=== PATIENT | male | born 1995 | race Caucasian/White ===

== ENCOUNTER 2022-06-07 18:29 | Outpatient (REF) | payer OTHER, SELFPAY ==
[2022-06-07 21:56] LABS: Hemoglobin A1C 5.3 % (<5.7)
[2022-06-07 22:02] LABS: ALT 35 U/L (16-63); AST 30 U/L (15-37); Albumin 4.4 g/dL (3.4-5.0); Alkaline Phosphatase 62 U/L (46-116); Anion Gap 5.4 mmol/L (3-11); BUN 15 mg/dL (7-18); Bilirubin, Total 0.4 mg/dL (0.2-1.0); CO2 31.6 mmol/L (21.0-32.0); CREATININE 1.2 mg/dL (0.70-1.30); Calcium 9.2 mg/dL (8.5-10.1); Calculated LDL 70 mg/dL (<100); Chloride 106 mmol/L (98-107); Cholesterol 153 mg/dL (<200); Estimated GFR 85.53 (mL/min/1.73m2); Glucose 98 mg/dL (74-106); HDL Cholesterol 47 mg/dL (40-60); Potassium 3.9 mmol/L (3.5-5.1); Sodium 143 mmol/L (136-145); T4 7.3 ug/dL (4.7-13.3); TSH 1.81 uIU/mL (0.36-3.74); Total Protein 8.2 g/dL (6.4-8.2); Triglyceride 183 mg/dL (<150)
[2022-06-07 22:29] LABS: FREE T4 0.85 ng/dL (0.76-1.46)
[2022-06-09 10:24] LABS: Hepatitis C Ab w Rflx HCV PCR Negative (Negative)
[2022-06-09 10:43] LABS: HIV-1/2 Ag & Ab Screen Negative (Negative)
== END 2022-06-07 18:30 | disposition home or self-care (01) ==
LOC: NCHCN 18:29
PROVIDERS: Visit Provider Nurse Practitioner Family
DX: Z11.3 Encounter for screening for infections with a predominantly sexual mode of transmission (principal); E01.0 Iodine-deficiency related diffuse (endemic) goiter; E66.9 Obesity, unspecified
CPT/HCPCS: 80053; 80061; 86803; 87389; 83036; 84436; 84439; 84443